=== PATIENT | female | born 1995 | race African-American/Black ===

== ENCOUNTER 2018-12-24 21:08 | Emergency (ER) | payer MEDICAID ==
[~2018-12-24] VITALS: Ht 154.9 cm; Wt 57.1 kg
[2018-12-25] MEDS ORDERED: FLUCONAZOLE 100MG TABLET PO ONE (02:15)
[2018-12-25] MEDS ORDERED: CEFTRIAXONE SODIUM 250 MG/VIAL IM ONE (02:45)
[2018-12-25] MEDS ORDERED: AZITHROMYCIN 500 MG TABLET PO ONE (02:45)
[2018-12-25] MEDS ORDERED: KETOROLAC 60MG/2ML VIAL IM ONE (03:00)
[2018-12-25] MEDS ORDERED: FLUCONAZOLE 150MG TABLET PO SCH (03:00)
[2018-12-25 03:16] LABS: CLARITY URINE CLOUDY (CLEAR); COLOR URINE YELLOW (YELLOW); KETONES URINE TRACE (NEGATIVE); LEUKOCYTE ESTERASE URINE 1+ (NEGATIVE); NITRITE URINE NEGATIVE (NEGATIVE); OCCULT BLOOD URINE NEGATIVE (NEGATIVE); PH URINE 5.5 (4.5-8.0); PROTEIN URINE NEGATIVE (NEGATIVE); SPECIFIC GRAVITY URINE 1.031 (1.005-1.030)
[2018-12-25 06:45] VITALS: BP 96/66
== END 2018-12-25 06:49 | disposition home or self-care (01) ==
LOC: ER 21:08
DX: N39.0 Urinary tract infection, site not specified (principal); B37.9 Candidiasis, unspecified; Z93.1 Gastrostomy status
CPT/HCPCS: 81003; 81025; 96372; 99283; J0696

== ENCOUNTER 2022-04-17 00:01 | Emergency (ER) | payer MEDICAID ==
[~2022-04-17] VITALS: Ht 154.9 cm; Wt 59.0 kg
[2022-04-17 00:09] VITALS: BP 153/72
[2022-04-17] MEDS ORDERED: AMOX-494 MT (04:49)
[2022-04-17] MEDS ORDERED: HYDR-4001 MT (04:49)
== END 2022-04-17 05:45 | disposition home or self-care (01) ==
LOC: ER 00:01
DX: R51.9 Headache, unspecified (principal); R60.9 Edema, unspecified
CPT/HCPCS: 81025; 99282

== ENCOUNTER 2022-09-06 16:50 | Emergency (ER) | payer MEDICAID ==
[~2022-09-06] VITALS: Ht 157.5 cm; Wt 60.0 kg
[~2022-09-06 16:50] MED LIST: AMOX-494 MT; HYDR-4001 MT
[2022-09-06 18:15] LABS: BASOPHILS % 0.8 % (0.0-2.0); EOSINOPHILS % 2.6 % (0.0-5.0); HEMATOCRIT. 40.3 % (36.0-48.0); HEMOGLOBIN. 13.6 g/dL (12.0-16.0); MEAN CORPUSCULAR HEMOGLOBIN 31.2 pg (28.0-32.0); MEAN CORPUSCULAR VOLUME 92.3 fL (81.0-99.0); MEAN PLATELET VOLUME 8.3 fl (7.4-10.4); NEUTROPHILS % 64.6 % (40.0-76.0); PLATELET 353 x1000/uL (130-400); RED BLOOD CELL COUNT 4.37 mill/uL (4.2-5.4); RED CELL DISTRIBUTION WIDTH 12.9 % (11.6-14.6)
[2022-09-06 18:33] LABS: CHLORIDE 108 mEq/L (98-107)
[2022-09-06] MEDS ORDERED: DOXYCYCLINE HYCLATE 100MG CAPSULE PO ONE (18:45)
[2022-09-06] MEDS ORDERED: CEFTRIAXONE SODIUM 500 MG/VIAL IM ONE (18:45)
[2022-09-06] MEDS ORDERED: EMTR1TAB11 MT (19:02)
[2022-09-06] MEDS ORDERED: RALT400T MT (19:02)
[2022-09-06] MEDS ORDERED: DOXY-456 MT (19:02)
[2022-09-06 19:25] VITALS: BP 124/84
[2022-09-06 19:35] LABS: CLARITY URINE CLEAR (CLEAR); COLOR URINE YELLOW (YELLOW); KETONES URINE TRACE (NEGATIVE); LEUKOCYTE ESTERASE URINE NEGATIVE (NEGATIVE); NITRITE URINE NEGATIVE (NEGATIVE); OCCULT BLOOD URINE NEGATIVE (NEGATIVE); PROTEIN URINE TRACE (NEGATIVE); SPECIFIC GRAVITY URINE 1.028 (1.005-1.030)
== END 2022-09-06 19:26 | disposition home or self-care (01) ==
LOC: ER 16:50
DX: A64 Unspecified sexually transmitted disease (principal); E05.90 Thyrotoxicosis, unspecified without thyrotoxic crisis or storm; Z79.899 Other long term (current) drug therapy
CPT/HCPCS: 36415; 80053; 81003; 81025; 85025; 86592; 86703; 87210; 87591; 96372; 99283; J0696; Z7610